=== PATIENT | male | born 1940 | race Caucasian/White ===

== ENCOUNTER → 2016-12-01 | Outpatient (CLI) | payer MEDICARE, OTHER ==
[~2016-12-01] MED LIST: AMIO200T35 PO; ASCO-297 PO; FEXO-11 PO; FISH1CAP29 PO; FLUT9.9S NAS; GABA-338 PO; HYDR-4072 PO; MELO-11 PO; METH500T6 PO; MULT-806 PO; OMEP20CA10 PO; POLY17PO6 PO; WARF2.5T48 PO; WARF5TAB67 PO
--- NOTE | 2016-12-02 08:37 | DI ---
Indication: ITS.REASON: M51.36 back and right leg pain and numbness for two months. Painful walking PROCEDURE: MRI LUMBAR SPINE W/O CONTRAST: Encounter: Initial Comparison: Lumbar spine radiographs dated August 05, 2015 Technique: Multiplanar multisequence MR imaging of the lumbar spine was performed without contrast. Findings: There is mild levoscoliosis. Vertebral body heights are maintained. No acute fracture. Mild degenerative endplate changes at L2-L3 and L3-L4. Conus medullaris terminates normally at L1. The paraspinal soft tissues are unremarkable. Segmental analysis: L1-L2: Normal L2-L3: Severe disk height loss with a disk osteophyte complex. Posterior decompression. Severe left and mild right neural foraminal stenosis. There is impingement on the exiting left L2 nerve root. L3-L4: Posterior decompression with a central disk protrusion which still appears to be causing moderate central canal narrowing. Severe bilateral neural foraminal stenosis with disk material impinging on both exiting L3 nerve roots. L4-L5: Degenerative facet hypertrophy with a 1.1 cm right-sided synovial cyst causing severe compression of the thecal sac and severe central canal stenosis. Small disk bulge superimposed on this without significant neural foraminal stenosis. L5-S1: Degenerative grade 1 anterolisthesis of L5 on S1 with a broad annular disk protrusion and degenerative hypertrophy of the facets results in mild central canal stenosis. There is severe right neural foraminal stenosis with disk material compressing the exiting L5 nerve root. There is also severe left neural foraminal stenosis. Impression: Multifocal areas of severe neural foraminal stenosis with severe central canal narrowing at L4-L5. .
== END ==
LOC: IMA 18:54
PROVIDERS: ATTEND Internal Medicine
DX: M48.06 Spinal stenosis, lumbar region (principal); M43.17 Spondylolisthesis, lumbosacral region; M47.26 Other spondylosis with radiculopathy, lumbar region; M48.07 Spinal stenosis, lumbosacral region; Z98.890 Other specified postprocedural states; M51.36 Other intervertebral disc degeneration, lumbar region